=== PATIENT | female | born 1970 | race Caucasian/White ===

== ENCOUNTER 2017-04-17 15:57 | Emergency (ER) | payer OTHER ==
[~2017-04-17] VITALS: Ht 167.6 cm; Wt 54.5 kg
[~2017-04-17 15:57] MED LIST: FLAV1TAB3 PO; LEVO1TAB34 PO; MULTTAB PO; TYLOTC500 PO
[2017-04-17 16:03] VITALS: TEMP 36.6; Ht 167.6 cm; Wt 54.5 kg
[2017-04-17] MEDS ORDERED: ACYC400T PO (16:29)
[2017-04-17 17:18] LABS: BASO % 0.4 %; BASO ABS # 0.03 K/uL (0-0.2); COMPLETE YES; EOS % 1.3 %; HEMATOCRIT 38.7 % (37-47); IG% 0.3 %; LYMPH % 17.3 %; LYMPH ABS # 1.32 K/uL (1.2-3.4); MEAN CELL VOLUME 92.1 fL (80-100); MEAN CORPUSCULAR HEMOGLOBIN 32.4 pg (25-34); MEAN CORPUSCULAR HGB CONC 35.1 g/dl (32-36); MEAN PLATELET VOLUME 10.9 fL (7.4-10.4); NEUT % 71.7 %; PLATELET COUNT 196 K/uL (130-400); WHITE BLOOD COUNT 7.64 K/uL (4.8-10.8)
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
[2017-04-17 17:30] LABS: PARTIAL THROMBOPLASTIN RATIO 1.1; PROTHROMBIN TIME (PATIENT) 10.4 SECONDS (9.0-12.0)
[2017-04-17 17:34] LABS: BUN/CREATININE RATIO 15.3 (10-20); CALCIUM 9.3 mg/dl (8.5-10.1); CREATININE 0.64 mg/dl (0.60-1.20); POTASSIUM 3.5 mmol/L (3.5-5.1)
--- NOTE | 2017-04-17 18:04 | EMERGENCY ROOM VISIT NOTE ---
History Report prepared by Vick: Christel Wilcox Under the Supervision of: Dr. Darius Montano M.D. First contact with patient: 16:08 Chief Complaint: LEG PAIN,LEG INJURY Stated Complaint: LOWER LEG PAIN,SWELLING PAIN History of Present Illness The patient is a 47 year old female who presents to the Emergency Room with complaints of worsening left lower leg pain for the past 3 weeks. She saw her PCP for her pain and they thought it was an infection. She did not have any imaging studies done. The patient was placed on Doxycycline and Motrin. She finished the Doxy yesterday and stopped taking the Motrin yesterday. She noticed increased pain yesterday that has continued to worsen today. She reports swelling to the ankle. Her pain is worsened with palpation. She rates her pain as a 10/10 in severity. The patient felt nauseated this morning. She denies any fever. She denies any recent trauma or injury to the ankle. She denies chest pain, shortness of breath, vomiting, and any personal history of blood clots. She is not on her feet a lot. She does not use control or smoke cigarettes. Source of History: patient Onset: 3 weeks ago Position: leg (left) Symptom Intensity: 10/10 Timing: worsening Associated Symptoms: + nausea, No fevers, No chest pain, No SOB, No vomiting Note: Pt has swelling and warmth to left ankle. Review of Systems See HPI for pertinent positives & negatives. A total of 10 systems reviewed and were otherwise negative. Past Medical & Surgical Medical Problems: (1) section (2) History of - hysterectomy (3) Orthostatic hypotension (4) urinary retention Family History No pertinent history stated. Social History Smoking Status: Never Smoker Alcohol Use: occasionally Marital Status: Housing Status: lives with family Occupation Status: unemployed Current/Historical Medications Scheduled Acyclovir (Acyclovir), 1 TAB PO DAILY Multivitamins/Minerals (Mvi With Minerals), 1 TAB PO DAILY Allergies Coded Allergies: Acetaminophen (Verified Allergy, Severe, HEART HURT, 04/17/17) Oxycodone (Verified Allergy, Severe, HEART HURT, 04/17/17) Adhesives (Verified Allergy, Mild, pt has a sensitivity, 04/17/17) Penicillins (Verified Allergy, Unknown, 04/17/17) Physical Exam Vital Signs Date Time Temp Pulse Resp B/P (MAP) Pulse Ox O2 Delivery O2 Flow Rate FiO2 04/17/17 16:03 36.6 84 20 129/84 97 Room Air Physical Exam Constitutional: Vital signs reviewed. Eyes: Pupils are equal round reactive to light. Conjunctiva are noninjected. ENT: Pharynx is clear without erythema or exudate. Mucous membranes are moist. Neck supple without meningeal signs. Respiratory: Clear to auscultation bilaterally. Breath sounds are equal bilaterally. Cardiovascular: Regular rate and rhythm. No rubs or gallops. GI: Soft, nondistended and nontender. Bowel sounds are present. Musculoskeletal: Tenderness to the posterior lower calf and lateral malleolus of the left ankle, FROM of the ankle without significant pain, no joint line tenderness, slight increased warmth, normal distal pulses. Integumentary: No cyanosis. Neurological: The patient is awake and alert. No focal deficits. Psychiatric: Normal affect. Medical Decision & Procedures ER Provider Diagnostic Interpretation: Radiology results as stated below per my review and the radiologist's interpretation: LEFT ANKLE MIN 3 VIEWS ROUTINE CLINICAL HISTORY: Left ankle pain status post trauma COMPARISON: None. DISCUSSION: There is a subtle fracture of the distal fibula 4.5 cm proximal to the fibular tip. No tibial fractures are visualized. The ankle mortise appears intact. IMPRESSION: Nondisplaced distal fibular fracture. Electronically signed by: Guy Cisneros M.D. 04/17/2017 5:23 PM Dictated Date/Time: 04/17/2017 5:22 PM Laboratory Results 04/17/17 16:49 Red Blood Count 4.20, Mean Corpuscular Volume 92.1, Mean Corpuscular Hemoglobin 32.4, Mean Corpuscular Hemoglobin Concent 35.1, Mean Platelet Volume 10.9, Neutrophils (%) (Auto) 71.7, Lymphocytes (%) (Auto) 17.3, Monocytes (%) (Auto) 9.0, Eosinophils (%) (Auto) 1.3, Basophils (%) (Auto) 0.4, Neutrophils # (Auto) 5.48, Lymphocytes # (Auto) 1.32, Monocytes # (Auto) 0.69, Eosinophils # (Auto) 0.10, Basophils # (Auto) 0.03 04/17/17 16:49 Test 04/17/17 16:49 White Blood Count 7.64 K/uL (4.8-10.8) Red Blood Count 4.20 M/uL (4.2-5.4) Hemoglobin 13.6 g/dL (12.0-16.0) Hematocrit 38.7 % (37-47) Mean Corpuscular Volume 92.1 fL (80-100) Mean Corpuscular Hemoglobin 32.4 pg (25-34) Mean Corpuscular Hemoglobin Concent 35.1 g/dl (32-36) Platelet Count 196 K/uL (130-400) Mean Platelet Volume 10.9 fL (7.4-10.4) Neutrophils (%) (Auto) 71.7 % Lymphocytes (%) (Auto) 17.3 % Monocytes (%) (Auto) 9.0 % Eosinophils (%) (Auto) 1.3 % Basophils (%) (Auto) 0.4 % Neutrophils # (Auto) 5.48 K/uL (1.4-6.5) Lymphocytes # (Auto) 1.32 K/uL (1.2-3.4) Monocytes # (Auto) 0.69 K/uL (0.11-0.59) Eosinophils # (Auto) 0.10 K/uL (0-0.5) Basophils # (Auto) 0.03 K/uL (0-0.2) RDW Standard Deviation 41.3 fL (36.4-46.3) RDW Coefficient of Variation 12.3 % (11.5-14.5) Immature Granulocyte % (Auto) 0.3 % Immature Granulocyte # (Auto) 0.02 K/uL (0.00-0.02) Prothrombin Time 10.4 SECONDS (9.0-12.0) Prothromb Time International Ratio 1.0 (0.9-1.1) Activated Partial Thromboplast Time 27.5 SECONDS (21.0-31.0) Partial Thromboplastin Ratio 1.1 Anion Gap 6.0 mmol/L (3-11) Est Creatinine Clear Calc Drug Dose 91.5 ml/min Estimated GFR () 121.4 Estimated GFR (Non- 104.8 BUN/Creatinine Ratio 15.3 (10-20) Calcium Level 9.3 mg/dl (8.5-10.1) Laboratory results as reviewed by me. ED Course 1608: The patient was evaluated in room C7. A complete history and physical exam was performed. 1735: I updated the patient on her x-ray results and we discussed the risks of narcotic pain medications. She is still waiting for her ultrasound. The patient states that Percocet makes her violently ill so she prefers not to have any narcotics. 1800: The patient was signed out to Dr. Sandy at the change of shift. Medical Decision This is a 47-year-old female who presents with left ankle pain and swelling. Differential diagnosis includes pathologic fracture, stress fracture, DVT, superficial, phlebitis, cellulitis, septic arthritis. I did perform a limited focused review of portions of the patient's old chart on the electronic medical record. The patient has had no recent pertinent visits to this hospital. I did evaluate the patient as noted above. The patient is presenting with a 3 week history of left ankle pain and swelling. She denies any injury to the ankle. She was placed on antibiotics by her PCP without any relief of her symptoms. She just finished the antibiotics yesterday. She denies any fever. She has some swelling and minimal redness to the area. She is tender to the lateral malleolus of that ankle. There is no joint laxity. No signs of septic arthritis. IV access was established. I did order and personally review the patient's ankle x-rays as described above. She does have a fracture to the distal fibula. I did order and review the patient's blood work as noted in the electronic medical record. Her white blood cell count is not elevated. I did discuss the test results with the patient. She will be placed in a Ortho-Glass splint when she returns from ultrasound. I don't believe that she has a cellulitis or infection at this time. She had no relief with her antibiotics and does not appear to need antibiotics at this time. She will take Motrin for pain as she is allergic to oxycodone. She will follow up with orthopedics. I did order a Doppler ultrasound of the left leg to rule out DVT. This is currently pending at a time. The patient was signed out to Dr. Sandy. [place] Drug Monitoring Program Search Results: patient reviewed within database Drug Monitoring Findings: No matching patients. Medication Reconcilliation Current Medication List: was personally reviewed by me Blood Pressure Screening Patient's blood pressure: Elevated blood pressure Blood pressure disposition: Elevated BP felt to be situational Impression Primary Impression: Closed fracture of left distal fibula Scribe Attestation The scribe's documentation has been prepared under my direct and personally reviewed by me in its entirety. I confirm that the note above accurately reflects all work, treatment, procedures, and medical decision making performed by me. Departure Information Dispostion Still a Patient Referrals No Doctor, Assigned (PCP) Patient Instructions My [facility] Problem Qualifiers Primary Impression: Closed fracture of left distal fibula Encounter type: initial encounter Fracture morphology: unspecified fracture morphology Qualified Codes: S82.832A - Other fracture of upper and lower end of left fibula, initial encounter for closed fracture
--- NOTE | 2017-04-17 18:14 | DIAGNOSTIC IMAGING REPORT ---
ULTRASOUND LEFT VENOUS DOPP LOWER EXT UNILAT CLINICAL HISTORY: Left leg pain COMPARISON STUDY: No previous studies for comparison. FINDINGS: Real-time and color flow Doppler imaging were performed. Flow was seen within the femoral, popliteal and calf veins with no intraluminal thrombus demonstrated. The saphenous vein is patent. IMPRESSION: No evidence of left lower extremity DVT. Electronically signed by: Guy Cisneros M.D. 04/17/2017 6:12 PM Dictated Date/Time: 04/17/2017 6:12 PM
--- NOTE | 2017-04-17 19:12 | EMERGENCY ROOM VISIT NOTE ---
ED Visit Note Patient is a 47-year-old female signed out to me awaiting an ultrasound. Ultrasound was negative for any DVT. She did have a fracture. She was discharged to follow-up with PCP in a splint with her fracture per Dr. Gallegos. Discussed with Pt concerning signs and symptoms to watch out for. Pt was instructed to follow up with their PCP and discussed with the patient their option to return to the ED at anytime for persistent or worsening symptoms. The appropriate anticipatory guidance and out-patient management, including indications for return to the emergency department, were explained at length to the patient and understood.
[2017-04-17 19:35] VITALS: BP 125/90; PULSE 77; O2SAT 95
== END 2017-04-17 19:35 | disposition home or self-care (01) ==
LOC: C.EDB 16:00 → C.EDC 19:35
DX: S82.832A Other fracture of upper and lower end of left fibula, initial encounter for closed fracture (principal); X58.XXXA Exposure to other specified factors, initial encounter; I95.1 Orthostatic hypotension; Z90.710 Acquired absence of both cervix and uterus

== ENCOUNTER 2017-04-30 12:22 | Emergency (ER) | payer OTHER ==
[~2017-04-30] VITALS: Ht 167.6 cm; Wt 57.1 kg
[~2017-04-30 12:22] MED LIST changes: +ACYC400T PO; -FLAV1TAB3 PO; -LEVO1TAB34 PO; -TYLOTC500 PO
[2017-04-30 12:28] VITALS: TEMP 36.9; Ht 167.6 cm; Wt 57.1 kg
[2017-04-30] MEDS ORDERED: IBUP-1451 PO (13:03)
--- NOTE | 2017-04-30 13:46 | DIAGNOSTIC IMAGING REPORT ---
RIGHT HAND MIN 3 VIEWS ROUTINE CLINICAL HISTORY: hand pain Right pain COMPARISON: None. DISCUSSION: The bones and joint spaces appear intact. There is no evidence of fracture, dislocation or bony disease. Mild periarticular osteopenia throughout. Possibility of early rheumatoid must be considered. No acute bony abnormality. IMPRESSION: Mild periarticular osteopenia raising the possibility of early rheumatoid change. No acute process. The above report was generated using voice recognition software. It may contain grammatical, syntax or spelling errors. Electronically signed by: Gonzalez Fry M.D. 04/30/2017 1:45 PM Dictated Date/Time: 04/30/2017 1:42 PM
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
[2017-04-30] MEDS ORDERED: CHLORHEXIDINE GLUCONATE 0.12% 480 ML MT STA ×2 (14:54→16:48)
[2017-04-30] MEDS ORDERED: CHLORHEXIDINE GLUCONATE 0.12% 15 ML UDP PO ONE (15:30)
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
[2017-04-30 17:39] VITALS: BP 115/97; PULSE 80; O2SAT 98
== END 2017-04-30 17:39 | disposition home or self-care (01) ==
LOC: C.EDB 12:27 → C.EDD 17:39
DX: S09.90XA Unspecified injury of head, initial encounter (principal); S01.512A Laceration without foreign body of oral cavity, initial encounter; M79.641 Pain in right hand; X58.XXXA Exposure to other specified factors, initial encounter; Y92.9 Unspecified place or not applicable; Z87.891 Personal history of nicotine dependence; Z83.3 Family history of diabetes mellitus; Z80.9 Family history of malignant neoplasm, unspecified

== ENCOUNTER → 2017-05-02 | Outpatient (CLI) | payer OTHER ==
[~2017-05-02] MED LIST changes: -ACYC400T PO; +IBUP-1451 PO; -MULTTAB PO
--- NOTE | 2017-05-02 09:35 | DIAGNOSTIC IMAGING REPORT ---
LEFT ANKLE MIN 3 VIEWS CLINICAL HISTORY: LEFT ANKLE PAIN COMPARISON STUDY: Left ankle 04/17/2017. FINDINGS: Progressive sclerosis within the transverse fracture within the distal left fibula. This suggests interval healing. No displacement. No dislocation. The distal tibia is intact. No significant soft tissue swelling. IMPRESSION: Nondisplaced healing distal left fibular fracture. Electronically signed by: Parviz Sheffield M.D. 05/02/2017 9:33 AM Dictated Date/Time: 05/02/2017 9:32 AM
== END | disposition home or self-care (01) ==
LOC: C.RDSM 15:17
PROVIDERS: ATTEND Family Medicine
DX: M25.572 Pain in left ankle and joints of left foot (principal); S82.892D Other fracture of left lower leg, subsequent encounter for closed fracture with routine healing; X58.XXXD Exposure to other specified factors, subsequent encounter

== ENCOUNTER → 2017-05-16 | Outpatient (CLI) | payer OTHER ==
--- NOTE | 2017-05-16 09:56 | DIAGNOSTIC IMAGING REPORT ---
L ANKLE MIN 3 VIEWS CLINICAL HISTORY: LEFT ANKLE FX COMPARISON: 05/02/2017 DISCUSSION: Again evident is a healing nondisplaced distal fibular fracture. No additional fractures are evident. IMPRESSION: No change in alignment of the healing nondisplaced distal fibular fracture. Electronically signed by: Guy Cisneros M.D. 05/16/2017 9:55 AM Dictated Date/Time: 05/16/2017 9:53 AM
== END | disposition home or self-care (01) ==
LOC: C.RDSM 09:39
PROVIDERS: ATTEND Family Medicine
DX: S82.832D Other fracture of upper and lower end of left fibula, subsequent encounter for closed fracture with routine healing (principal); X58.XXXD Exposure to other specified factors, subsequent encounter

== ENCOUNTER → 2017-06-28 | Outpatient (CLI) | payer OTHER ==
--- NOTE | 2017-06-28 14:54 | DIAGNOSTIC IMAGING REPORT ---
LEFT ANKLE 3 VIEWS HISTORY: PERSISTENT PAIN WITH SUBACUTE LEFT ANKLE FX COMPARISON: Left ankle 05/08/2017. FINDINGS: Progressive sclerosis and callus formation within the nondisplaced fracture at the distal fibula. This is consistent with continued healing. No additional fractures identified. No dislocation. Soft tissues are unremarkable. No radiopaque foreign bodies. IMPRESSION: Progressive but incomplete healing within the nondisplaced distal fibular fracture. No additional fractures identified. Electronically signed by: Parviz Sheffield M.D. 06/28/2017 2:53 PM Dictated Date/Time: 06/28/2017 2:52 PM
== END | disposition home or self-care (01) ==
LOC: C.RDSM 14:41
PROVIDERS: ATTEND Family Medicine
DX: S82.832A Other fracture of upper and lower end of left fibula, initial encounter for closed fracture (principal); X58.XXXA Exposure to other specified factors, initial encounter